=== PATIENT | female | born 2000 | race Caucasian/White ===

== ENCOUNTER 2022-01-14 01:36 | Emergency (ER) | payer OTHER ==
[~2022-01-14] VITALS: Ht 167.6 cm; Wt 48.1 kg
[2022-01-14 01:58] LABS: APPEARANCE,URINE CLEAR (CLEAR); BILIRUBIN,URINE NEGATIVE (NEGATIVE); COLOR,URINE YELLOW (YELLOW); GLUCOSE, URINE (UA) NEGATIVE (NEGATIVE); HCG,QUAL RESULT NEGATIVE (NEGATIVE); KETONES,URINE 40 mg/dL (NEGATIVE); LEUKOCYTE ESTERASE ,URINE NEGATIVE (NEGATIVE); NITRATE,URINE NEGATIVE (NEGATIVE); OCCULT BLOOD,URINE NEGATIVE (NEGATIVE); PROTEIN,URINE TRACE mg/dL (NEGATIVE); UROBILINOGEN,URINE 0.2 mg/dL (0.2-1.0)
[2022-01-14 02:05] LABS: BACTERIA,URINE Few /HPF (None Seen); MUCUS,URINE Few LPF (None Seen); RBC,URINE 0-1 /HPF (0-1)
[2022-01-14 02:24] LABS: BASOPHILS % (AUTO) 0.2 % (0.0-5.0); HEMATOCRIT 39.5 % (36-48); LYMPHOCYTES % (AUTO) 8.9 % (21.0-51.0); MEAN CORPUSCULAR HEMOGLOBIN 30.9 pg (27.0-33.0); MEAN CORPUSCULAR HGB CONC 34.7 g/dL (32.0-36.0); MEAN CORPUSCULAR VOLUME 89.2 fL (80-100); MONOCYTES % (AUTO) 4.6 % (3.0-13.0); NEUTROPHILS % (AUTO) 85.9 % (40.0-77.0); PLATELET COUNT (AUTO) 343 K/uL (130-400); RED BLOOD CELL COUNT(AUTO) 4.43 MIL/uL (4.00-5.50); RED CELL DISTRIBUTION WIDTH 11.8 % (11.0-15.5); WHITE BLOOD COUNT (AUTO) 22.7 K/uL (4.8-10.8)
[2022-01-14] MEDS ORDERED: FAMOTIDINE 20MG VIAL IV ONE (02:30)
[2022-01-14] MEDS ORDERED: PROMETHAZINE HCL 25 MG/ML 1ML AMPULE IM ONE (02:30)
[2022-01-14] MEDS ORDERED: DiphenhydrAMINE HCL 50 MG/ML VIAL IV ONE (02:30)
[2022-01-14] MEDS ORDERED: LACTATED RINGERS 1000ML 1,000 ML IV ONE (02:30)
[2022-01-14 02:33] LABS: CREATININE 0.8 mg/dL (0.5-1.5); POTASSIUM 3.6 mmol/L (3.5-5.1)
[2022-01-14 02:37] LABS: ALBUMIN 4.1 g/dL (3.5-5.0); BILIRUBIN,TOTAL 1.1 mg/dL (0.2-1.0); TOTAL PROTEIN, SERUM 7.1 g/dL (6.0-8.3)
[2022-01-14] MEDS ORDERED: MECLIZINE HCL 25 MG TABLET PO ONE (03:30)
[2022-01-14] MEDS ORDERED: SOLU-MEDROL 125MG VIAL IVP ONE (03:30)
[2022-01-14] MEDS ORDERED: MECLIZINE HCL 25 MG TABLET ONE (03:45)
[2022-01-14] MEDS ORDERED: SOLU-MEDROL 125MG VIAL ONE (03:46)
[2022-01-14] MEDS ORDERED: PHEN12S PR (05:34)
[2022-01-14] MEDS ORDERED: MECL-160 PO (05:34)
[2022-01-14] MEDS ORDERED: PRED20TA3 PO (05:34)
[2022-01-14] MEDS ORDERED: ONDANSETRON 4MG INJ ONE (05:49)
[2022-01-14] MEDS ORDERED: ONDANSETRON 4MG INJ IVP ONE (06:00)
[2022-01-14 06:40] VITALS: BP 107/63
== END 2022-01-14 06:43 | disposition home or self-care (01) ==
LOC: EDH 01:36
DX: E86.0 Dehydration (principal); D72.829 Elevated white blood cell count, unspecified; F43.9 Reaction to severe stress, unspecified; R42 Dizziness and giddiness; R10.13 Epigastric pain; Z20.822 Contact with and (suspected) exposure to COVID-19; Z79.52 Long term (current) use of systemic steroids; Z88.0 Allergy status to penicillin
CPT/HCPCS: 36415; 80053; 81001; 81025; 82150; 85025; 87635; 87804 ×2; 96361; 96372; 96374; 96375; 99283; C9803; J1200; J2405; J2550; J2930; J3490